=== PATIENT | female | born 1985 ===

== ENCOUNTER 2023-03-10 09:42 | Outpatient (CLI) | payer OTHER | END 2023-03-10 09:43 | disposition home or self-care (01) | LOC: PRENATAL 09:42 | PROVIDERS: ATTEND Obstetrics & Gynecology Maternal & Fetal Medicine | DX: O35.3XX0 Maternal care for (suspected) damage to fetus from viral disease in mother, not applicable or unspecified (principal); O09.219 Supervision of pregnancy with history of pre-term labor, unspecified trimester; O09.529 Supervision of elderly multigravida, unspecified trimester; O44.00 Complete placenta previa NOS or without hemorrhage, unspecified trimester; Z3A.19 19 weeks gestation of pregnancy ==

== ENCOUNTER → 2023-05-19 11:23 | Outpatient (CLI) | payer OTHER | END | disposition home or self-care (01) | LOC: PRENATAL 11:23 | PROVIDERS: ATTEND Obstetrics & Gynecology Maternal & Fetal Medicine | DX: O26.849 Uterine size-date discrepancy, unspecified trimester (principal); O36.8199 Decreased fetal movements, unspecified trimester, other fetus; O09.219 Supervision of pregnancy with history of pre-term labor, unspecified trimester; O09.529 Supervision of elderly multigravida, unspecified trimester; O24.419 Gestational diabetes mellitus in pregnancy, unspecified control; Z3A.29 29 weeks gestation of pregnancy ==

== ENCOUNTER 2023-06-06 09:27 | Outpatient (CLI) | payer OTHER | END 2023-06-06 09:29 | disposition home or self-care (01) | LOC: PRENATAL 09:27 | PROVIDERS: ATTEND Obstetrics & Gynecology Maternal & Fetal Medicine | DX: O26.849 Uterine size-date discrepancy, unspecified trimester (principal); O36.8199 Decreased fetal movements, unspecified trimester, other fetus; O09.219 Supervision of pregnancy with history of pre-term labor, unspecified trimester; O09.529 Supervision of elderly multigravida, unspecified trimester; O24.419 Gestational diabetes mellitus in pregnancy, unspecified control; Z3A.32 32 weeks gestation of pregnancy ==

== ENCOUNTER 2023-06-08 18:38 | Outpatient (CLI) | payer OTHER ==
[~2023-06-08] VITALS: Ht 160 cm; Wt 84.4 kg
[2023-06-08] MEDS ORDERED: TERBUTALINE SULFATE 1 MG/ML AMPUL SUBCUTANEO SCH (19:00)
[2023-06-08] MEDS ORDERED: AMPICILLIN SODIUM 1,000 MG VIAL IV SCH (19:00)
[2023-06-08] MEDS ORDERED: AMPICILLIN SODIUM 2,000 MG VIAL IV ONE (19:00)
[2023-06-08] MEDS ORDERED: BETAMETHASONE ACETATE,SOD PHOS 30 MG/5 ML ML IM ONE (19:10)
[2023-06-08] MEDS ORDERED: RINGERS SOLUTION,LACTATED 1,000 ML IV SCH (19:45)
[2023-06-08] MEDS ORDERED: PRENATABS RX T1 EACH PO (20:07)
[2023-06-08 20:18] LABS: URINE APPEARANCE Clear; URINE BILIRRUBIN Negative (NEGATIVE); URINE BLOOD Negative; URINE COLOR Yellow; URINE GLUCOSE Negative (NEGATIVE); URINE LEUKOCYTE Trace; URINE NITRATE Negative; URINE PROTEIN Negative (NEGATIVE); URINE UROBILINOGEN 0.2 E.U./dl
[2023-06-08 20:19] LABS: URINE BACTERIA 617.3 uL (0.0-1933); URINE EPITHELIAL CELLS 32.4 uL (0.0-38.8); URINE RBC 3.4 uL (0.0-20.8); URINE WBC 14.9 uL (0.0-23.2)
[2023-06-08 20:25] LABS: HEMATOCRIT 38.3 % (36.0-45.00); HEMOGLOBIN 13.3 g/dL (12.0-15.00); MEAN CELL VOLUME 84.7 fL (80.00-100.00); MEAN CORPUSCULAR HEMOGLOBIN 29.4 pg (27.00-32.0); MEAN CORPUSCULAR HGB CONC 34.7 g/dl (32.0-36.0); PLATELET COUNT 271 K/uL (150-450); RED BLOOD COUNT 4.52 M/uL (4.00-6.00); RED CELL DISTRIBUTION WIDTH 13.6 % (11.5-14.5)
[2023-06-08 20:44] LABS: BILIRUBIN TOTAL 0.51 mg/dL (0.3-1.2); CREATININE SERUM 0.48 mg/dL (0.55-1.02); GFR 147.18; GLOBULINA 3.6 G/DL (2.4-3.5); POTASSIUM 4.13 mEq/L (3.5-5.1); TOTAL PROTEIN 6.6 gm/dL (6.4-8.2)
[2023-06-08 21:17] LABS: PROTHROMBIN TIME 9.8 SECONDS (9.0-11.5)
[2023-06-08 21:18] LABS: INR < 0.93; PARTIAL THROMBOPLASTIN TIME 26.2 SECONDS (22.0-34.0)
[2023-06-09] MEDS ORDERED: BETAMETHASONE ACETATE,SOD PHOS 30 MG/5 ML ML ONE (07:59)
[2023-06-09] MEDS ORDERED: ACETAMINOPHEN 500 MG GEL..CAP PO PRN (08:00)
[2023-06-09] MEDS ORDERED: BETAMETHASONE ACETATE,SOD PHOS 30 MG/5 ML ML IM ONE ×2 (08:15→19:10)
== END 2023-06-09 10:56 | disposition home or self-care (01) ==
LOC: OBS/DEL 18:38
PROVIDERS: ATTEND Specialist
DX: O26.893 Other specified pregnancy related conditions, third trimester (principal); Z3A.32 32 weeks gestation of pregnancy; R10.2 Pelvic and perineal pain

== ENCOUNTER 2023-06-21 19:45 | Inpatient (IN) | payer OTHER ==
[~2023-06-21] VITALS: Ht 152.4 cm; Wt 83.5 kg
[~2023-06-21 19:45] MED LIST: PRENATABS RX T1 EACH PO
[2023-06-21] MEDS ORDERED: BETAMETHASONE ACETATE,SOD PHOS 30 MG/5 ML ML IM STA (19:53)
[2023-06-21] MEDS ORDERED: TERBUTALINE SULFATE 1 MG/ML AMPUL ONE (19:56)
[2023-06-21] MEDS ORDERED: MAGNESIUM SULFATE IN WATER 4 GM/100 ML PIGGYBACK IV ONE (19:58)
[2023-06-21] MEDS ORDERED: CEFAZOLIN SODIUM 1,000 MG VIAL IV ONE (20:00)
[2023-06-21] MEDS ORDERED: MAGNESIUM SULFATE IN WATER 100 ML IV SCH (20:00)
[2023-06-21] MEDS ORDERED: RINGERS SOLUTION,LACTATED 100 ML IV SCH (20:00)
[2023-06-21] MEDS ORDERED: CEFAZOLIN SODIUM 1,000 MG VIAL IV SCH (20:00)
[2023-06-21] MEDS ORDERED: MAGNESIUM SULFATE IN WATER 500 ML IV SCH (20:00)
[2023-06-21 21:31] LABS: URINE APPEARANCE Clear; URINE BILIRRUBIN Negative (NEGATIVE); URINE BLOOD Negative; URINE COLOR Yellow; URINE GLUCOSE Negative (NEGATIVE); URINE LEUKOCYTE Trace; URINE NITRATE Negative; URINE PROTEIN Negative (NEGATIVE); URINE UROBILINOGEN 0.2 E.U./dl
[2023-06-21 21:31] LABS: HEMATOCRIT 38.2 % (36.0-45.00); MEAN CELL VOLUME 83.7 fL (80.00-100.00); MEAN CORPUSCULAR HEMOGLOBIN 28.5 pg (27.00-32.0); PLATELET COUNT 257 K/uL (150-450); RED BLOOD COUNT 4.56 M/uL (4.00-6.00); RED CELL DISTRIBUTION WIDTH 13.6 % (11.5-14.5)
[2023-06-21 21:35] LABS: URINE BACTERIA 1649.3 uL (0.0-1933); URINE EPITHELIAL CELLS 50.6 uL (0.0-38.8); URINE RBC 2.2 uL (0.0-20.8); URINE WBC 19.6 uL (0.0-23.2)
[2023-06-21 21:52] LABS: INR 0.95; PARTIAL THROMBOPLASTIN TIME 25.9 SECONDS (22.0-34.0)
[2023-06-21 22:00] LABS: ALBUMIN 2.9 gm/dL (3.4-5.0); BILIRUBIN TOTAL 0.5 mg/dL (0.3-1.2); CREATININE SERUM 0.52 mg/dL (0.55-1.02); GFR 134.19; GLOBULINA 3.7 G/DL (2.4-3.5); POTASSIUM 3.84 mEq/L (3.5-5.1); TOTAL PROTEIN 6.6 gm/dL (6.4-8.2)
[2023-06-22] MEDS ORDERED: PRENATAL + DHA1 EAC1 (10:33)
[2023-06-23] MEDS ORDERED: TERBUTALINE SULFATE 1 MG/ML AMPUL SUBCUTANEO ONE (03:15)
[2023-06-23] MEDS ORDERED: ERYTHROMYCIN BASE 3.5 GM OINT...G. OP ONE (05:54)
[2023-06-23] MEDS ORDERED: OXYTOCIN 10 UNITS/ML VIAL ONE (05:54)
[2023-06-23] MEDS ORDERED: OXYTOCIN 10 UNITS/ML VIAL IV SCH (08:00)
[2023-06-23] MEDS ORDERED: ERYTHROMYCIN BASE 1 GM TUBE OP SCH (08:00)
[2023-06-23] MEDS ORDERED: PROMETHAZINE HCL 50 MG/ML AMPUL IM PRN (08:00)
[2023-06-23] MEDS ORDERED: RINGERS SOLUTION,LACTATED 1,000 ML IV SCH (08:00)
[2023-06-23] MEDS ORDERED: MEPERIDINE HCL/PF 50 MG/ML VIAL IM PRN (08:00)
[2023-06-23] MEDS ORDERED: CEFAZOLIN SODIUM 1,000 MG VIAL ONE (08:39)
[2023-06-23] MEDS ORDERED: PROMETHAZINE HCL 50 MG/ML AMPUL ONE (09:37)
[2023-06-23] MEDS ORDERED: OxyCODONE HCL/APAP UD (PERCOCET) PO SCH (18:15)
[2023-06-24 01:29] LABS: HEMOGLOBIN 10.9 g/dL (12.0-15.00); MEAN CELL VOLUME 84.9 fL (80.00-100.00); MEAN CORPUSCULAR HGB CONC 34.2 g/dl (32.0-36.0); PLATELET COUNT 195 K/uL (150-450); RED BLOOD COUNT 3.77 M/uL (4.00-6.00); RED CELL DISTRIBUTION WIDTH 13.8 % (11.5-14.5)
[2023-06-24] MEDS ORDERED: ACETAMINOPHEN 500 MG GEL..CAP PO PRN (07:30)
[2023-06-25] MEDS ORDERED: ANUSOL-HC30 G2 RECTAL (07:32)
[2023-06-25] MEDS ORDERED: IBUPROFEN800 MG PO (07:32)
== END 2023-06-25 08:23 | disposition home or self-care (01) | DRG 783 ==
LOC: LDR 19:45 → OB/GYN 06-23 07:58 → O/R 06-23 15:17 → OB/GYN 06-23 15:18
PROVIDERS: ADMIT Specialist; ATTEND Specialist
PROC: 4A1HXCZ Monitoring of Products of Conception, Cardiac Rate, External Approach (ICD-10-PCS; 2023-06-21)
PROC: BW40ZZZ Ultrasonography of Abdomen (ICD-10-PCS; 2023-06-22)
PROC: BY4FZZZ Ultrasonography of Third Trimester, Single Fetus (ICD-10-PCS; 2023-06-22)
PROC: BU4CZZZ Ultrasonography of Uterus and Ovaries (ICD-10-PCS; 2023-06-22)
PROC: 0UB70ZZ Excision of Bilateral Fallopian Tubes, Open Approach (ICD-10-PCS; 2023-06-23)
PROC: 10D00Z1 Extraction of Products of Conception, Low, Open Approach (ICD-10-PCS; principal; 2023-06-23 05:30)
DX: O36.8330 Maternal care for abnormalities of the fetal heart rate or rhythm, third trimester, not applicable or unspecified (principal); K83.1 Obstruction of bile duct; O60.14X0 Preterm labor third trimester with preterm delivery third trimester, not applicable or unspecified; O26.643 Intrahepatic cholestasis of pregnancy, third trimester; O26.843 Uterine size-date discrepancy, third trimester; O36.8130 Decreased fetal movements, third trimester, not applicable or unspecified; Z3A.34 34 weeks gestation of pregnancy; Z37.0 Single live birth; Z20.822 Contact with and (suspected) exposure to COVID-19; Z30.2 Encounter for sterilization